=== PATIENT | male | born 1940 | race Caucasian/White ===

== ENCOUNTER 2022-04-13 23:04 | Emergency (ER) | payer MEDICARE ==
[~2022-04-13] VITALS: Ht 182.9 cm; Wt 100.1 kg
== END 2022-04-14 00:14 | disposition left against medical advice (07) ==
LOC: M ED 23:04
DX: Z53.21 Procedure and treatment not carried out due to patient leaving prior to being seen by health care provider (principal)

== ENCOUNTER 2024-03-25 13:10 | Inpatient (IN) | payer MEDICARE ==
[~2024-03-25] VITALS: Ht 182.9 cm; Wt 96.6 kg
[2024-03-25 14:15] LABS: BASO # 0.1 10^3/uL (0.0-0.2); BASO % 0.6 % (0.0-1.0); EOS # 0.2 10^3/uL (0.0-0.5); EOS % 1.4 % (0.0-3.0); HEMATOCRIT 45.9 % (42.0-52.0); HEMOGLOBIN 15.3 g/dl (13.5-17.5); LYMPH # 1.4 10^3/uL (1.5-5.0); LYMPH % 12.9 % (24.0-44.0); MEAN CORPUSCULAR HEMOGLOBIN 31.7 pg (27.0-33.0); MEAN CORPUSCULAR HGB CONC 33.3 g/dl (32.0-36.5); MONO # 0.6 10^3/uL (0.0-0.8); MONO % 5.2 % (2.0-8.0); NEUTROPHILS # 8.5 10^3/uL (1.5-8.5); NEUTROPHILS % 79.4 % (36.0-66.0); PLATELET COUNT, AUTOMATED 182 10^3/uL (150-450); RED BLOOD COUNT 4.83 10^6/uL (4.30-6.10); WHITE BLOOD COUNT 10.7 10^3/uL (4.0-10.0)
[2024-03-25] MEDS ORDERED: LABE100T40 PO (14:15)
[2024-03-25] MEDS ORDERED: DULO1CAP6 PO (14:20)
[2024-03-25] MEDS ORDERED: HUMA100I5 SUBQ (14:20)
[2024-03-25] MEDS ORDERED: TAMS1CAP17 PO (14:20)
[2024-03-25] MEDS ORDERED: ERGO500029 PO (14:20)
[2024-03-25] MEDS ORDERED: FLUO1CRE2 TOP ×2 (14:20→17:56)
[2024-03-25] MEDS ORDERED: FARX1TAB3 PO (14:20)
[2024-03-25] MEDS ORDERED: OMEP-173 PO (14:20)
[2024-03-25] MEDS ORDERED: ROSU5TAB40 PO (14:20)
[2024-03-25] MEDS ORDERED: GABA-282 PO (14:20)
[2024-03-25 14:33] LABS: BLOOD UREA NITROGEN 23 MG/DL (9-23); CALCIUM LEVEL 9.2 MG/DL (8.3-10.6); CARBON DIOXIDE LEVEL 28 MMOL/L (20-31); CHLORIDE LEVEL 109 MMOL/L (98-107); GLOMERULAR FILTRATION RATE > 60.0 (>35); GLUCOSE, FASTING 97 MG/DL (74-106); SODIUM LEVEL 143 MMOL/L (136-145)
[2024-03-25] MEDS ORDERED: ISOVUE-370 76% 100ML VIAL As Ordered ONE (14:47)
[2024-03-25 14:58] LABS: CK-MB VALUE MASS 2.3 NG/ML (<3.6)
[2024-03-25 15:03] LABS: FREE T4 0.82 NG/DL (0.89-1.76)
[2024-03-25 15:06] LABS: CPK CREATINE PHOSPHOKINASE 142 U/L (46-171); MB/CK RELATIVE INDEX 1.61 (< OR =4)
[2024-03-25 15:14] LABS: INR 1.17; PROTHROMBIN TIME 14.6 SECONDS (12.5-14.5)
[2024-03-25] MEDS: LABETALOL 100MG/20ML VIAL IV STA (16:13)
[2024-03-25] MEDS: ASPIRIN 325 MG TAB PO ONE (16:20)
[2024-03-25] MEDS ORDERED: LABETALOL 100MG/20ML VIAL IV STA (17:03)
[2024-03-25] MEDS ORDERED: GLUCOSE 4 GM CHEW PO PRN (17:05)
[2024-03-25] MEDS ORDERED: GLUCAGON INJ 1MG VIAL SC PRN (17:05)
[2024-03-25] MEDS ORDERED: DEXTROSE 50% 50ML SYRINGE IV PRN (17:05)
[2024-03-25] MEDS: hydrALAZINE 20MG/ML 1ML VIAL IV ONE (17:15)
[2024-03-25] MEDS ORDERED: hydrALAZINE 20MG/ML 1ML VIAL IV PRN (17:30)
[2024-03-25] MEDS: INSULIN LISPRO (NovoLOG) PER UNIT SC SCH ×2 (17:30→21:00)
[2024-03-25 17:53] LABS: HEMOGLOBIN A1c 7.7 % (4.0-6.0)
[2024-03-25 17:56] LABS: ERYTHROCYTE SEDIMENTATION RATE 17 mm/hr (0-20)
[2024-03-25] MEDS ORDERED: LACT10SO3 PO (17:56)
[2024-03-25] MEDS ORDERED: LANTINJ4 SC (17:57)
[2024-03-25] MEDS ORDERED: HOME MED LIST COMPLETE! XX SCH (18:00)
[2024-03-25 18:08] LABS: C REACTIVE PROTEIN QUANTITATIV < 0.40 MG/DL (<1.0)
[2024-03-25 18:10] LABS: CHOLESTEROL LEVEL 149 MG/DL (<200); CHOLESTEROL RISK RATIO 3.66 (<5); HDL CHOLESTEROL 40.7 MG/DL (>40); LDL CHOLESTEROL 85.3 MG/DL (<100); NON-HDL-C 108.3 MG/DL; TRIGLYCERIDES LEVEL 115 MG/DL (<150)
[2024-03-25] MEDS: ATORVASTATIN 20 MG TAB PO SCH (21:00)
[2024-03-25] MEDS: LACTULOSE 20GM/30ML SYRUP UDC PO SCH (21:00)
[2024-03-25] MEDS: GABAPENTIN 300 MG CAP PO SCH (21:00)
[2024-03-25 21:51] VITALS: BP 169/67; TEMP 97.9; O2SAT 95
[2024-03-25] MEDS: LEVEMIR (INSULIN DETEMIR) 1 UNITS/0.01ML SC SCH (21:56)
[2024-03-26] VITALS (9 sets, daily range): BP systolic 136–174; BP diastolic 57–78; TEMP 97.4–98.3; O2SAT 94–98
[2024-03-26 06:09] LABS: BASO # 0.1 10^3/uL (0.0-0.2); BASO % 0.5 % (0.0-1.0); EOS # 0.2 10^3/uL (0.0-0.5); EOS % 1.6 % (0.0-3.0); HEMATOCRIT 45.4 % (42.0-52.0); HEMOGLOBIN 15.3 g/dl (13.5-17.5); LYMPH # 2.4 10^3/uL (1.5-5.0); LYMPH % 25.2 % (24.0-44.0); MEAN CORPUSCULAR HEMOGLOBIN 32.1 pg (27.0-33.0); MEAN CORPUSCULAR HGB CONC 33.7 g/dl (32.0-36.5); MEAN CORPUSCULAR VOLUME 95.4 fl (80.0-96.0); MONO # 0.8 10^3/uL (0.0-0.8); NEUTROPHILS # 6.2 10^3/uL (1.5-8.5); NEUTROPHILS % 64.5 % (36.0-66.0); PLATELET COUNT, AUTOMATED 175 10^3/uL (150-450); RED BLOOD COUNT 4.76 10^6/uL (4.30-6.10); WHITE BLOOD COUNT 9.6 10^3/uL (4.0-10.0)
[2024-03-26 06:40] LABS: BLOOD UREA NITROGEN 20 MG/DL (9-23); CALCIUM LEVEL 9.1 MG/DL (8.3-10.6); CARBON DIOXIDE LEVEL 28 MMOL/L (20-31); CHLORIDE LEVEL 107 MMOL/L (98-107); CREATININE FOR GFR 0.76 MG/DL (0.70-1.30); GLOMERULAR FILTRATION RATE > 60.0 (>35); GLUCOSE, FASTING 132 MG/DL (74-106); SODIUM LEVEL 142 MMOL/L (136-145)
[2024-03-26] MEDS: ENOXAPARIN 40MG/0.4ML SYRINGE (J1650 PER 10MG) SC SCH (09:00)
[2024-03-26] MEDS: ASPIRIN 81MG CHEW TABLET PO SCH (09:01)
[2024-03-26] MEDS: TAMSULOSIN 0.4 MG CAP PO SCH (09:01)
[2024-03-26] MEDS: OMEPRAZOLE 20MG CAP PO SCH (09:01)
[2024-03-26] MEDS: DAPAGLIFLOZIN PROPANEDIOL 10MG TABLET (FARXIGA) PO SCH (09:01)
[2024-03-26] MEDS: DULoxetine 30MG CAPSULE (CYMBALTA) PO SCH (09:01)
[2024-03-26] MEDS ORDERED: PILL CUTTER 1 EACH XX PRN (12:50)
[2024-03-26] MEDS: ROSUVASTATIN 10 MG TAB (CRESTOR) PO SCH (13:51)
[2024-03-26] MEDS: LEVEMIR (INSULIN DETEMIR) 1 UNITS/0.01ML SC SCH (20:34)
[2024-03-27] VITALS (8 sets, daily range): BP systolic 127–184; BP diastolic 64–81; TEMP 97.7–98.1; O2SAT 95–96
[2024-03-27] MEDS ORDERED: HALOPERIDOL LACTATE 5MG/ML VIAL IV PRN (03:05)
[2024-03-27] MEDS: LABETALOL 100MG TAB PO SCH (09:44)
[2024-03-27] MEDS: amLODIPine 5 MG TAB PO ONE (09:45)
[2024-03-27 10:33] LABS: BASO # 0.1 10^3/uL (0.0-0.2); BASO % 0.7 % (0.0-1.0); EOS # 0.1 10^3/uL (0.0-0.5); EOS % 0.8 % (0.0-3.0); HEMATOCRIT 47.8 % (42.0-52.0); HEMOGLOBIN 16.2 g/dl (13.5-17.5); LYMPH # 1.3 10^3/uL (1.5-5.0); LYMPH % 15.5 % (24.0-44.0); MEAN CORPUSCULAR HGB CONC 33.9 g/dl (32.0-36.5); MEAN CORPUSCULAR VOLUME 94.5 fl (80.0-96.0); MONO # 0.5 10^3/uL (0.0-0.8); MONO % 6.4 % (2.0-8.0); NEUTROPHILS # 6.5 10^3/uL (1.5-8.5); NEUTROPHILS % 76.2 % (36.0-66.0); PLATELET COUNT, AUTOMATED 173 10^3/uL (150-450); RED BLOOD COUNT 5.06 10^6/uL (4.30-6.10); WHITE BLOOD COUNT 8.5 10^3/uL (4.0-10.0)
[2024-03-27 10:54] LABS: BLOOD UREA NITROGEN 20 MG/DL (9-23); CALCIUM LEVEL 8.6 MG/DL (8.3-10.6); CARBON DIOXIDE LEVEL 27 MMOL/L (20-31); CHLORIDE LEVEL 107 MMOL/L (98-107); CREATININE FOR GFR 0.76 MG/DL (0.70-1.30); GLOMERULAR FILTRATION RATE > 60.0 (>35); GLUCOSE, FASTING 257 MG/DL (74-106); MAGNESIUM LEVEL 1.8 MG/DL (1.8-2.4); POTASSIUM SERUM 4.3 MMOL/L (3.5-5.1); SODIUM LEVEL 140 MMOL/L (136-145)
[2024-03-27] MEDS ORDERED: ROSU20TA61 PO (14:22)
[2024-03-27] MEDS ORDERED: ASPI81CH8 PO (14:22)
[2024-03-27] MEDS ORDERED: AMLO1TAB24 PO (14:22)
[2024-03-28] MEDS ORDERED: amLODIPine 5 MG TAB PO SCH (09:00)
== END 2024-03-27 16:14 | DRG 66 ==
LOC: EDBD 13:10 → M ED 13:10 → M ED INP 17:31 → M PCU 21:36
PROVIDERS: ADMIT Internal Medicine; ATTEND Internal Medicine
PROC: B246ZZZ Ultrasonography of Right and Left Heart (ICD-10-PCS; principal; 2024-03-26)
DX: I63.9 Cerebral infarction, unspecified (principal); I10 Essential (primary) hypertension; I16.0 Hypertensive urgency; E11.9 Type 2 diabetes mellitus without complications; E78.5 Hyperlipidemia, unspecified; H53.2 Diplopia; M19.90 Unspecified osteoarthritis, unspecified site; M88.9 Osteitis deformans of unspecified bone; R26.89 Other abnormalities of gait and mobility; N40.0 Benign prostatic hyperplasia without lower urinary tract symptoms; Z79.899 Other long term (current) drug therapy; Z88.1 Allergy status to other antibiotic agents

== ENCOUNTER 2024-03-27 14:40 | Inpatient (IN) | payer MEDICARE ==
[~2024-03-27] VITALS: Ht 182.9 cm; Wt 94.6 kg
[~2024-03-27 14:40] MED LIST: AMLO1TAB24 PO; ASPI81CH8 PO; DULO1CAP6 PO; ERGO500029 PO; FARX1TAB3 PO; FLUO1CRE2 TOP; GABA-282 PO; HUMA100I5 SUBQ; LABE100T40 PO; LACT10SO3 PO; LANTINJ4 SC; OMEP-173 PO; ROSU20TA61 PO; ROSU5TAB40 PO; TAMS1CAP17 PO
[2024-03-27 15:30] VITALS: BP 161/71; TEMP 98.1; O2SAT 96
[2024-03-27] MEDS ORDERED: ACETAMINOPHEN TAB 650MG DOSE (2X325MG) PO PRN (16:20)
[2024-03-27] MEDS ORDERED: LACTULOSE 20GM/30ML SYRUP UDC PO PRN (16:20)
[2024-03-27] MEDS ORDERED: ONDANSETRON 4MG TAB PO PRN (16:20)
[2024-03-27] MEDS ORDERED: GLUCAGON INJ 1MG VIAL SC PRN (16:25)
[2024-03-27] MEDS ORDERED: GLUCOSE 4 GM CHEW PO PRN (16:25)
[2024-03-27] MEDS ORDERED: **hydrALAZINE** 10 MG TAB PO PRN (16:25)
[2024-03-27] MEDS ORDERED: DEXTROSE 50% 50ML SYRINGE IV PRN (16:25)
[2024-03-27] MEDS: INSULIN LISPRO (NovoLOG) PER UNIT SC SCH ×2 (18:19→20:39)
[2024-03-27 20:35] VITALS: BP 144/69; TEMP 98.2; O2SAT 96
[2024-03-27] MEDS: GABAPENTIN 300 MG CAP PO SCH (20:47)
[2024-03-27] MEDS: QUEtiapine FUMARATE 12.5 MG HALF-TAB PO SCH (20:47)
[2024-03-27] MEDS: SENOKOT S TAB PO SCH (20:47)
[2024-03-27] MEDS: ROSUVASTATIN 10 MG TAB (CRESTOR) PO SCH (20:47)
[2024-03-27] MEDS: LEVEMIR (INSULIN DETEMIR) 1 UNITS/0.01ML SC SCH (20:48)
[2024-03-27] MEDS: LABETALOL 100MG TAB PO SCH (20:48)
[2024-03-28 04:00] VITALS: BP 122/60; TEMP 97.6; O2SAT 95
[2024-03-28 07:12] LABS: ALBUMIN 3.5 G/DL (3.2-5.2); ALKALINE PHOSPHATASE 70 U/L (46-116); ALT/SGPT 22 U/L (7.0-40); AST/SGOT 28 U/L (<34); BILIRUBIN,TOTAL 0.6 MG/DL (0.3-1.2); BLOOD UREA NITROGEN 23 MG/DL (9-23); CALCIUM LEVEL 9.1 MG/DL (8.3-10.6); CARBON DIOXIDE LEVEL 29 MMOL/L (20-31); CHLORIDE LEVEL 107 MMOL/L (98-107); CREATININE FOR GFR 0.91 MG/DL (0.70-1.30); GLOMERULAR FILTRATION RATE > 60.0 (>35); GLUCOSE, FASTING 114 MG/DL (74-106); SODIUM LEVEL 142 MMOL/L (136-145); TOTAL PROTEIN 6.2 G/DL (5.7-8.2)
[2024-03-28 07:19] LABS: VITAMIN B12 LEVEL 343 PG/ML (211-911)
[2024-03-28] MEDS: DULoxetine 30MG CAPSULE (CYMBALTA) PO SCH (08:02)
[2024-03-28] MEDS: TAMSULOSIN 0.4 MG CAP PO SCH (08:02)
[2024-03-28] MEDS: DAPAGLIFLOZIN PROPANEDIOL 10MG TABLET (FARXIGA) PO SCH (08:03)
[2024-03-28] MEDS: OMEPRAZOLE 20MG CAP PO SCH (08:03)
[2024-03-28] MEDS: ASPIRIN 81MG CHEW TABLET PO SCH (08:03)
[2024-03-28] MEDS: ENOXAPARIN 40MG/0.4ML SYRINGE (J1650 PER 10MG) SC SCH (08:04)
[2024-03-28] MEDS: amLODIPine 5 MG TAB PO SCH (08:04)
[2024-03-28] MEDS ORDERED: OMEPRAZOLE 20MG CAP PO SCH (09:00)
[2024-03-28 12:00] VITALS: BP 126/59; TEMP 97.5; O2SAT 96
[2024-03-28 19:26] VITALS: BP 183/82; TEMP 97.7; O2SAT 96
[2024-03-28 21:35] VITALS: BP 150/68
[2024-03-29 06:12] VITALS: BP 125/58; TEMP 97.5; O2SAT 95
[2024-03-29 12:00] VITALS: BP 129/60; TEMP 97.5; O2SAT 96
[2024-03-29] MEDS ORDERED: QUEtiapine FUMARATE 12.5 MG HALF-TAB PO PRN (15:15)
[2024-03-29 20:06] VITALS: BP 149/67; TEMP 98.2; O2SAT 97
[2024-03-30 04:16] VITALS: BP 146/82; TEMP 97.5; O2SAT 95
[2024-03-30 06:21] LABS: HEMATOCRIT 44.2 % (42.0-52.0); HEMOGLOBIN 14.5 g/dl (13.5-17.5); MEAN CORPUSCULAR HEMOGLOBIN 31.7 pg (27.0-33.0); MEAN CORPUSCULAR HGB CONC 32.8 g/dl (32.0-36.5); MEAN CORPUSCULAR VOLUME 96.5 fl (80.0-96.0); PLATELET COUNT, AUTOMATED 157 10^3/uL (150-450); RED BLOOD COUNT 4.58 10^6/uL (4.30-6.10); WHITE BLOOD COUNT 7.6 10^3/uL (4.0-10.0)
[2024-03-30 12:13] VITALS: BP 132/71; TEMP 97.5; O2SAT 96
[2024-03-30 20:00] VITALS: BP 160/68; TEMP 97.6; O2SAT 95
[2024-03-31 04:00] VITALS: BP 133/64; TEMP 97.7; O2SAT 94
[2024-03-31 12:00] VITALS: BP 132/69; TEMP 97.6; O2SAT 95
[2024-03-31 20:00] VITALS: BP 149/69; TEMP 98.1; O2SAT 96
[2024-04-01 04:00] VITALS: BP 133/62; TEMP 97.7; O2SAT 96
[2024-04-01 12:00] VITALS: BP 134/63; TEMP 97.4; O2SAT 99
[2024-04-01 19:47] VITALS: BP 168/76; TEMP 97.7; O2SAT 96
[2024-04-02 03:34] VITALS: BP 136/60; TEMP 97.1; O2SAT 94
[2024-04-02 05:53] LABS: HEMATOCRIT 45.8 % (42.0-52.0); HEMOGLOBIN 15.3 g/dl (13.5-17.5); MEAN CORPUSCULAR HEMOGLOBIN 31.8 pg (27.0-33.0); MEAN CORPUSCULAR HGB CONC 33.4 g/dl (32.0-36.5); MEAN CORPUSCULAR VOLUME 95.2 fl (80.0-96.0); PLATELET COUNT, AUTOMATED 158 10^3/uL (150-450); RED BLOOD COUNT 4.81 10^6/uL (4.30-6.10); WHITE BLOOD COUNT 6.9 10^3/uL (4.0-10.0)
[2024-04-02 06:15] LABS: BLOOD UREA NITROGEN 20 MG/DL (9-23); CALCIUM LEVEL 8.9 MG/DL (8.3-10.6); CARBON DIOXIDE LEVEL 30 MMOL/L (20-31); CHLORIDE LEVEL 108 MMOL/L (98-107); CREATININE FOR GFR 0.88 MG/DL (0.70-1.30); GLOMERULAR FILTRATION RATE > 60.0 (>35); GLUCOSE, FASTING 92 MG/DL (74-106); POTASSIUM SERUM 4.1 MMOL/L (3.5-5.1); SODIUM LEVEL 143 MMOL/L (136-145)
[2024-04-02 12:00] VITALS: BP 134/76; TEMP 98.1; O2SAT 95
[2024-04-02 20:10] VITALS: BP 141/65; TEMP 97.9; O2SAT 100
[2024-04-03 04:43] VITALS: BP 130/64; TEMP 97.4; O2SAT 97
[2024-04-03 12:00] VITALS: BP 131/60; TEMP 98.3; O2SAT 95
[2024-04-03 20:00] VITALS: BP 143/68; TEMP 98.3; O2SAT 97
[2024-04-04 04:00] VITALS: BP 119/57; TEMP 97.3; O2SAT 98
[2024-04-04 12:00] VITALS: BP 131/63; TEMP 97.8; O2SAT 98
[2024-04-04 20:00] VITALS: BP 127/58; TEMP 98.2; O2SAT 98
[2024-04-05 04:00] VITALS: BP 130/60; TEMP 97.8; O2SAT 95
[2024-04-05 08:00] VITALS: BP 115/56
[2024-04-05 08:56] LABS: HEMATOCRIT 45.5 % (42.0-52.0); HEMOGLOBIN 15.1 g/dl (13.5-17.5); MEAN CORPUSCULAR HEMOGLOBIN 31.9 pg (27.0-33.0); MEAN CORPUSCULAR HGB CONC 33.2 g/dl (32.0-36.5); PLATELET COUNT, AUTOMATED 164 10^3/uL (150-450); RED BLOOD COUNT 4.74 10^6/uL (4.30-6.10); WHITE BLOOD COUNT 7.5 10^3/uL (4.0-10.0)
== END 2024-04-05 12:00 | disposition home health service (06) | DRG 57 ==
LOC: M PM&R 16:18
PROVIDERS: ADMIT Student in an Organized Health Care Education/Training Program; ATTEND Student in an Organized Health Care Education/Training Program
DX: I69.398 Other sequelae of cerebral infarction (principal); E11.51 Type 2 diabetes mellitus with diabetic peripheral angiopathy without gangrene; M19.90 Unspecified osteoarthritis, unspecified site; N40.0 Benign prostatic hyperplasia without lower urinary tract symptoms; K57.90 Diverticulosis of intestine, part unspecified, without perforation or abscess without bleeding; M88.9 Osteitis deformans of unspecified bone; Z79.4 Long term (current) use of insulin; E78.5 Hyperlipidemia, unspecified; R26.89 Other abnormalities of gait and mobility; H53.2 Diplopia; I10 Essential (primary) hypertension; Z74.09 Other reduced mobility; I77.0 Arteriovenous fistula, acquired; K21.9 Gastro-esophageal reflux disease without esophagitis; Z88.8 Allergy status to other drugs, medicaments and biological substances; Z79.899 Other long term (current) drug therapy; Z79.82 Long term (current) use of aspirin; Z98.49 Cataract extraction status, unspecified eye; G31.84 Mild cognitive impairment of uncertain or unknown etiology; I69.318 Other symptoms and signs involving cognitive functions following cerebral infarction

== ENCOUNTER → 2024-04-13 | Outpatient (REF) | payer MEDICARE | LOC: M WUC 20:36 | PROVIDERS: ATTEND Physician Assistant | DX: R30.0 Dysuria (principal) ==